=== PATIENT | male | born 1945 | race Caucasian/White ===

== ENCOUNTER 2021-09-06 04:04 | Inpatient (IN) ==
[2021-09-06 04:36] LABS: Basophils % 0.3 % (0.0-0.8); Eosinophils # 0.4 10*3/uL (0.0-0.87); Hematocrit 46.5 VOL% (42.0-52.0); Hemoglobin 15.9 GM/DL (14.0-18.0); Immature Granulocytes % 1.2 %; Immature Granulocytes Absolute 0.15 #; Lymphocytes # 0.5 10*3/uL (1.4-4.0); Lymphocytes % 3.8 % (21.2-54.2); Mean Corpuscular HGB Conc 34.2 GM/DL (32-36); Mean Corpuscular Volume 89.1 FL (87-102); Mean Platelet Volume 8.8 FL (9.6-12.0); Monocytes % 5.4 % (1.7-12.7); Neutrophils % 86.3 % (38.7-73.9); Platelet Count 220 T/CUMM (130-400); Red Blood Count 5.22 MC/CUMM (3.8-5.5); Red Cell Distribution Width 12.5 % (9.3-17.3); White Blood Count 12.6 T/CUMM (4-12)
[2021-09-06 04:47] LABS: INR 1.1; PT Patient Result 12.6 SECS (10.5-12.0)
[2021-09-06 04:59] LABS: Band Neutrophils 1 % (0-10); Eosinophils 3 % (0-10); Lymphocytes 2 % (20-55); Platelet Estimate Normal; Segmented Neutrophils 93 % (50-85); Total Cells Counted 100
[2021-09-06 05:14] LABS: Alanine Aminotransferase 20 U/L (16-61); Albumin 3.3 G/DL (3.4-5.0); Alkaline Phosphatase 109 U/L (45-117); Aspartate Amino Transferase 17 U/L (0-37); Bilirubin,Total < 0.39 MG/DL (0.20-1.00); Blood Urea Nitrogen 14 MG/DL (7-18); Carbon Dioxide 23 MMOL/L (21-32); Estimated Glom Filtration Rate 65 ML/MIN; Glucose 164 MG/DL (74-106); Osmolality,Calculated 274.1 MOS/KG (273-304); Sodium 135 MMOL/L (136-145); Total Protein 6.9 G/DL (6.4-8.2)
[2021-09-06] MEDS ORDERED: SODIUM CHLORIDE 0.9% 1,000 ML IV STA (05:53)
[2021-09-06] MEDS ORDERED: ALUMINUM/MAGNES/SIMETH MAX STR 30 ML UDCUP PO PRN (07:37)
[2021-09-06] MEDS ORDERED: HEPARIN 5,000 UNIT/1 ML VIAL IV STA (08:30)
[2021-09-06] MEDS ORDERED: ONDANSETRON 4 MG/2 ML VIAL IV PRN (10:15)
[2021-09-06] MEDS ORDERED: GLUCAGON 1 MG VIAL IM PRN (10:15)
[2021-09-06] MEDS ORDERED: DEXTROSE 50% 25 GM/50 ML SYRINGE IV PRN (10:15)
[2021-09-06] MEDS ORDERED: CETIRIZINE 10 MG TABLET PO PRN (10:19)
[2021-09-06] MEDS ORDERED: AZITHROMYCIN INJ 500 MG in SODIUM CHLORIDE 0.9% 250 ML IV SCH (10:30)
[2021-09-06 10:50] LABS: Risk Ratio 4.26; Thyroid Stimulating Hormone 1.27 uIU/ml (0.358-3.74)
[2021-09-06] MEDS ORDERED: DEXTROSE 10% 250 ML BAG IV PRN (11:00)
[2021-09-06] MEDS: CHOLECALCIFEROL 1,000 UNIT TABLET PO SCH (12:29)
[2021-09-06] MEDS: ZINC SULFATE 220 MG CAPSULE PO SCH (12:29)
[2021-09-06] MEDS: DEXAMETHASONE 4 MG TABLET PO SCH (12:30)
[2021-09-06] MEDS ORDERED: INFLUENZA VIRUS VACCINE 0.5 ML SYRINGE IM ONE (15:59)
[2021-09-06] MEDS: ALBUTEROL 2.5 MG/3 ML NEB RESP TX SCH (16:39)
[2021-09-06] MEDS: ASCORBIC ACID 500 MG TABLET PO SCH (21:46)
[2021-09-06] MEDS: ATORVASTATIN 40 MG TABLET PO SCH (21:46)
[2021-09-06] MEDS: FAMOTIDINE 20 MG TABLET PO SCH (21:46)
[2021-09-06] MEDS: APIXABAN 5 MG TABLET PO SCH (21:46)
[2021-09-07 05:39] LABS: Basophils % 0.2 % (0.0-0.8); Eosinophils # 0.1 10*3/uL (0.0-0.87); Eosinophils % 0.8 % (0.00-10.9); Hemoglobin 14.8 GM/DL (14.0-18.0); Immature Granulocytes % 0.8 %; Immature Granulocytes Absolute 0.07 #; Lymphocytes % 11.6 % (21.2-54.2); Mean Corpuscular HGB Conc 33.6 GM/DL (32-36); Mean Platelet Volume 8.8 FL (9.6-12.0); Monocytes % 7.7 % (1.7-12.7); Neutrophils % 78.9 % (38.7-73.9); Platelet Count 208 T/CUMM (130-400); Red Blood Count 4.89 MC/CUMM (3.8-5.5); Red Cell Distribution Width 12.4 % (9.3-17.3); White Blood Count 8.7 T/CUMM (4-12)
[2021-09-07 06:52] LABS: Calcium 8.7 MG/DL (8.5-10.1); Osmolality,Calculated 271.1 MOS/KG (273-304); Potassium 4.2 MMOL/L (3.5-5.1)
[2021-09-07] MEDS: ALBUTEROL INHALER 18 GM INH SCH ×4 (07:22→21:37)
[2021-09-07] MEDS: DEXAMETHASONE 4 MG TABLET PO SCH (08:33)
[2021-09-07] MEDS: APIXABAN 5 MG TABLET PO SCH ×2 (08:33→21:37)
[2021-09-07] MEDS: ASPIRIN CHEW 81 MG TABLET PO SCH (08:33)
[2021-09-07] MEDS: ASCORBIC ACID 500 MG TABLET PO SCH ×2 (08:34→21:37)
[2021-09-07] MEDS: CHOLECALCIFEROL 1,000 UNIT TABLET PO SCH (08:34)
[2021-09-07] MEDS: ZINC SULFATE 220 MG CAPSULE PO SCH (08:34)
[2021-09-07] MEDS: FAMOTIDINE 20 MG TABLET PO SCH ×2 (08:35→21:37)
[2021-09-07] MEDS ORDERED: PANTOPRAZOLE 40 MG TABLET PO SCH (09:00)
[2021-09-07] MEDS: ALBUTEROL 2.5 MG/3 ML NEB RESP TX SCH (09:41)
[2021-09-07 11:13] LABS: Ferritin 377.7 ng/mL (26-388)
[2021-09-07 11:48] LABS: INR 1.2; PT Patient Result 13.2 SECS (10.5-12.0)
[2021-09-07] MEDS: ATORVASTATIN 40 MG TABLET PO SCH (21:37)
[2021-09-08] MEDS: ALBUTEROL INHALER 18 GM INH SCH ×4 (01:00→18:27)
[2021-09-08] MEDS: ACETAMINOPHEN 325 MG TABLET PO PRN ×2 (04:25→18:27)
[2021-09-08 06:50] LABS: Basophils % 0.1 % (0.0-0.8); Eosinophils % 0.2 % (0.00-10.9); Hematocrit 41.5 VOL% (42.0-52.0); Immature Granulocytes % 0.6 %; Immature Granulocytes Absolute 0.06 #; Lymphocytes % 10.8 % (21.2-54.2); Mean Corpuscular HGB Conc 33.7 GM/DL (32-36); Mean Corpuscular Volume 89.1 FL (87-102); Mean Platelet Volume 9.6 FL (9.6-12.0); Monocytes % 7.3 % (1.7-12.7); Platelet Count 207 T/CUMM (130-400); Red Blood Count 4.66 MC/CUMM (3.8-5.5); Red Cell Distribution Width 12.5 % (9.3-17.3); White Blood Count 9.7 T/CUMM (4-12)
[2021-09-08 07:19] LABS: Calcium 8.4 MG/DL (8.5-10.1); Osmolality,Calculated 263.7 MOS/KG (273-304); Potassium 4.2 MMOL/L (3.5-5.1)
[2021-09-08] MEDS: ASCORBIC ACID 500 MG TABLET PO SCH ×2 (08:13→20:11)
[2021-09-08] MEDS: CHOLECALCIFEROL 1,000 UNIT TABLET PO SCH (08:13)
[2021-09-08] MEDS: DEXAMETHASONE 4 MG TABLET PO SCH (08:13)
[2021-09-08] MEDS: APIXABAN 5 MG TABLET PO SCH ×2 (08:13→20:10)
[2021-09-08] MEDS: ASPIRIN CHEW 81 MG TABLET PO SCH (08:13)
[2021-09-08] MEDS: FAMOTIDINE 20 MG TABLET PO SCH ×2 (08:13→20:10)
[2021-09-08] MEDS: ZINC SULFATE 220 MG CAPSULE PO SCH (08:13)
[2021-09-08] MEDS: PIPERACILLIN/TAZOBACTAM 3,375 MG in SODIUM CHLORIDE 0.9% 100 ML IV SCH ×3 (11:13→18:28)
[2021-09-08] MEDS ORDERED: FUROSEMIDE 20 MG/2 ML VIAL IV ONE (11:17)
[2021-09-08] MEDS: ATORVASTATIN 40 MG TABLET PO SCH (20:10)
[2021-09-08] MEDS: ZALEPLON 5 MG CAPSULE PO PRN (20:10)
[2021-09-09] MEDS: ALBUTEROL INHALER 18 GM INH SCH ×4 (01:04→18:24)
[2021-09-09] MEDS: PIPERACILLIN/TAZOBACTAM 3,375 MG in SODIUM CHLORIDE 0.9% 100 ML IV SCH ×3 (02:24→18:24)
[2021-09-09 06:00] LABS: Basophils % 0.1 % (0.0-0.8); Eosinophils % 0.1 % (0.00-10.9); Hematocrit 45.5 VOL% (42.0-52.0); Hemoglobin 15.4 GM/DL (14.0-18.0); Immature Granulocytes % 0.8 %; Immature Granulocytes Absolute 0.06 #; Lymphocytes % 13.9 % (21.2-54.2); Mean Corpuscular HGB Conc 33.8 GM/DL (32-36); Mean Corpuscular Volume 89.9 FL (87-102); Mean Platelet Volume 9.3 FL (9.6-12.0); Monocytes % 9.2 % (1.7-12.7); Neutrophils % 75.9 % (38.7-73.9); Platelet Count 215 T/CUMM (130-400); Red Blood Count 5.06 MC/CUMM (3.8-5.5); Red Cell Distribution Width 12.5 % (9.3-17.3); White Blood Count 7.3 T/CUMM (4-12)
[2021-09-09 06:30] LABS: Calcium 8.5 MG/DL (8.5-10.1); Osmolality,Calculated 270.2 MOS/KG (273-304); Potassium 4.1 MMOL/L (3.5-5.1)
[2021-09-09] MEDS: ASPIRIN CHEW 81 MG TABLET PO SCH (08:11)
[2021-09-09] MEDS: CHOLECALCIFEROL 1,000 UNIT TABLET PO SCH (08:12)
[2021-09-09] MEDS: APIXABAN 5 MG TABLET PO SCH ×2 (08:12→20:13)
[2021-09-09] MEDS: DEXAMETHASONE 4 MG TABLET PO SCH (08:12)
[2021-09-09] MEDS: FAMOTIDINE 20 MG TABLET PO SCH ×2 (08:12→20:14)
[2021-09-09] MEDS: ZINC SULFATE 220 MG CAPSULE PO SCH (08:12)
[2021-09-09] MEDS: ASCORBIC ACID 500 MG TABLET PO SCH ×2 (08:12→20:13)
[2021-09-09] MEDS ORDERED: PHENOL 1.4% THROAT SPRAY 177 ML BOTTLE PO PRN (11:22)
[2021-09-09] MEDS ORDERED: BENZONATATE 100 MG CAPSULE PO PRN (11:34)
[2021-09-09] MEDS: ACETAMINOPHEN 325 MG TABLET PO PRN (12:06)
[2021-09-09] MEDS: ATORVASTATIN 40 MG TABLET PO SCH (20:13)
[2021-09-09] MEDS: ZALEPLON 5 MG CAPSULE PO PRN (20:13)
[2021-09-10] MEDS: ALBUTEROL INHALER 18 GM INH SCH ×4 (01:30→22:25)
[2021-09-10] MEDS: PIPERACILLIN/TAZOBACTAM 3,375 MG in SODIUM CHLORIDE 0.9% 100 ML IV SCH ×3 (05:16→19:40)
[2021-09-10 05:27] LABS: Basophils % 0.1 % (0.0-0.8); Eosinophils % 0.3 % (0.00-10.9); Hematocrit 42.4 VOL% (42.0-52.0); Hemoglobin 14.9 GM/DL (14.0-18.0); Immature Granulocytes % 0.6 %; Immature Granulocytes Absolute 0.04 #; Lymphocytes # 1.1 10*3/uL (1.4-4.0); Lymphocytes % 15.5 % (21.2-54.2); Mean Corpuscular HGB Conc 35.1 GM/DL (32-36); Mean Corpuscular Volume 90.8 FL (87-102); Mean Platelet Volume 9.6 FL (9.6-12.0); Monocytes % 9.1 % (1.7-12.7); Neutrophils % 74.4 % (38.7-73.9); Platelet Count 204 T/CUMM (130-400); Red Blood Count 4.67 MC/CUMM (3.8-5.5); Red Cell Distribution Width 12.4 % (9.3-17.3); White Blood Count 7.1 T/CUMM (4-12)
[2021-09-10 06:24] LABS: Calcium 8.6 MG/DL (8.5-10.1); Osmolality,Calculated 271.4 MOS/KG (273-304); Potassium 4.4 MMOL/L (3.5-5.1)
[2021-09-10] MEDS: CHOLECALCIFEROL 1,000 UNIT TABLET PO SCH (10:42)
[2021-09-10] MEDS: FAMOTIDINE 20 MG TABLET PO SCH ×2 (10:42→22:24)
[2021-09-10] MEDS: DEXAMETHASONE 4 MG TABLET PO SCH (10:43)
[2021-09-10] MEDS: ZINC SULFATE 220 MG CAPSULE PO SCH (10:43)
[2021-09-10] MEDS: APIXABAN 5 MG TABLET PO SCH ×2 (10:43→22:23)
[2021-09-10] MEDS: ASCORBIC ACID 500 MG TABLET PO SCH ×2 (10:43→22:23)
[2021-09-10] MEDS: ASPIRIN CHEW 81 MG TABLET PO SCH (10:43)
[2021-09-10] MEDS: ATORVASTATIN 40 MG TABLET PO SCH (22:23)
[2021-09-10] MEDS: ZALEPLON 5 MG CAPSULE PO PRN (22:23)
[2021-09-11] MEDS: ALBUTEROL INHALER 18 GM INH SCH ×2 (01:15→10:19)
[2021-09-11] MEDS: PIPERACILLIN/TAZOBACTAM 3,375 MG in SODIUM CHLORIDE 0.9% 100 ML IV SCH (04:45)
[2021-09-11 07:42] VITALS: BP 105/57
[2021-09-11] MEDS: ASCORBIC ACID 500 MG TABLET PO SCH (10:18)
[2021-09-11] MEDS: DEXAMETHASONE 4 MG TABLET PO SCH (10:18)
[2021-09-11] MEDS: CHOLECALCIFEROL 1,000 UNIT TABLET PO SCH (10:18)
[2021-09-11] MEDS: ZINC SULFATE 220 MG CAPSULE PO SCH (10:18)
[2021-09-11] MEDS: FAMOTIDINE 20 MG TABLET PO SCH (10:18)
[2021-09-11] MEDS: APIXABAN 5 MG TABLET PO SCH (10:18)
[2021-09-11] MEDS: ASPIRIN CHEW 81 MG TABLET PO SCH (10:19)
[2021-09-14] MEDS ORDERED: APIXABAN 5 MG TABLET PO SCH (09:00)
== END 2021-09-11 12:19 | disposition home or self-care (01) | DRG 177 ==
LOC: EDBD → EDUNIT# → N.ED 04:04 → SUATTDRO 09:40 → N.EDINP 09:40 → N.CC 15:31 → N.5E 09-09 23:49
PROVIDERS: ADMIT Internal Medicine; ATTEND Internal Medicine